=== PATIENT | female | born 1985 | race Caucasian/White ===

== ENCOUNTER 2017-03-12 09:29 | Emergency (ER) | payer OTHER ==
[2017-03-12 09:33] VITALS: BMI 40.3
--- NOTE | 2017-03-12 09:51 | PDOC ---
History of Present Illness - General History Source: Patient Exam Limitations: No Limitations - History of Present Illness Initial Comments: 03/12/17 10:00 The patient is a 32 year old female (37 weeks ), with no significant past medical history who presents to the emergency department with complaints of dizziness and headache. The patient states her headache begins behind her eyes and describes it as a heaviness. The patient denies any recent contractions and reports concern for high blood pressure. Patient denies any history of preeclampsia or complications in her previous pregnancies. She denies any nausea, vomiting, abdominal pain. She denies chest pain, fever, chills. She denies dysuria, frequency, urgency or hematuria. Allergies: NKA Past surgical history: None Social history: None <Richelle Szymanski - Last Filed: 03/12/17 10:01> <Jerrica Mattson - Last Filed: 03/12/17 16:49> - General Chief Complaint: Lightheaded Stated Complaint: BLOOD PRESSURE PROBLEM/WOOZY Time Seen by Provider: 03/12/17 09:41 Past History <Richelle Szymanski - Last Filed: 03/12/17 10:01> - Past Medical History Anemia: No Asthma: No Cancer: No Cardiac Disorders: No CVA: No COPD: No CHF: No Dementia: No Diabetes: No GI Disorders: No Disorders: No HTN: No Hypercholesterolemia: No Liver Disease: No Seizures: No Thyroid Disease: No - Reproductive History Is Patient Now?: Yes (#): 4 Para: 3 Cervical CA: No Dysfunctional Uterine Bleeding: No Ectopic : No Endometrial CA: No Polycystic Ovaries: No Therapeutic (s) & number: No Tubal Ligation: No Spontaneous : 0 - Immunization History Immunization Up to Date: Yes - Psycho/Social/Smoking Cessation Hx Anxiety: No Suicidal Ideation: No Smoking Status: No Smoking History: Never smoked Years of Tobacco Use: 13 Number of Cigarettes Smoked Daily: 8 'Breaking Loose' booklet given: 03/22/16 Hx Alcohol Use: No Drug/Substance Use Hx: No Substance Use Type: None Hx Substance Use Treatment: No <Jerrica Mattson - Last Filed: 03/12/17 16:49> - Past Medical History Allergies/Adverse Reactions: Allergies Allergy/AdvReac Type Severity Reaction Status Date / Time No Known Drug Allergies Allergy Verified 03/12/17 09:33 Home Medications: Ambulatory Orders NK [No Known Home Medication] 03/12/17 Review of Systems - Review of Systems Able to Perform ROS?: Yes Comments:: 03/12/17 10:00 GENERAL/CONSTITUTIONAL: No fever or chills. No weakness. HEAD, EYES, EARS, NOSE AND THROAT: No change in vision. No ear pain or discharge. No sore throat. CARDIOVASCULAR: No chest pain or shortness of breath. RESPIRATORY: No cough, wheezing, or hemoptysis. GASTROINTESTINAL: No nausea, vomiting, diarrhea or constipation. GENITOURINARY: No dysuria, frequency, or change in urination. MUSCULOSKELETAL: No joint or muscle swelling or pain. No neck or back pain. SKIN: No rash NEUROLOGIC: +headache.+dizziness. No vertigo, loss of consciousness, or change in strength/sensation. ENDOCRINE: No increased thirst. No abnormal weight change. HEMATOLOGIC/LYMPHATIC: No anemia, easy bleeding, or history of blood clots. ALLERGIC/IMMUNOLOGIC: No hives or skin allergy. <Richelle Szymanski - Last Filed: 03/12/17 10:01> *Physical Exam - Vital Signs Last Vital Signs Temp Pulse Resp BP Pulse Ox 98.1 F 88 20 137/77 99 03/12/17 09:30 03/12/17 09:30 03/12/17 09:30 03/12/17 09:30 03/12/17 09:30 <Richelle Szymanski - Last Filed: 03/12/17 10:01> - Vital Signs Last Vital Signs Temp Pulse Resp BP Pulse Ox 98.1 F 88 20 137/77 99 03/12/17 09:30 03/12/17 09:30 03/12/17 09:30 03/12/17 09:30 03/12/17 09:30 - Physical Exam Comments: GENERAL: Awake, alert, and fully oriented, in no acute distress HEAD: No signs of trauma EYES: PERRLA, EOMI, sclera anicteric, conjunctiva clear ENT: Auricles normal inspection, hearing grossly normal, nares patent, oropharynx clear without exudates. Dry mucosa NECK: Normal ROM, supple, no lymphadenopathy, JVD, or masses LUNGS: Breath sounds equal, clear to auscultation bilaterally. No wheezes, and no crackles HEART: Regular rate and rhythm, normal S1 and S2, no murmurs, rubs or gallops ABDOMEN: Soft, nontender, normoactive bowel sounds. No guarding, no rebound. Gravid uterus. EXTREMITIES: Normal range of motion, no edema. No clubbing or cyanosis. No cords, erythema, or tenderness NEUROLOGICAL: Cranial nerves II through XII grossly intact. Normal speech, normal gait SKIN: Warm, Dry, normal turgor, no rashes or lesions noted. <Jerrica Mattson - Last Filed: 03/12/17 16:49> ED Treatment Course - LABORATORY CBC & Chemistry Diagram: 03/12/17 10:00 03/12/17 10:00 <Jerrica Mattson - Last Filed: 03/12/17 16:49> Medical Decision Making - Medical Decision Making 03/12/17 11:58 Pt reassessed. She states she is feeling better s/p IV fluids. Stable for DC from ED up to L&D for monitoring. <Jerrica Mattson - Last Filed: 03/12/17 16:49> *DC/Admit/Observation/Transfer - Attestations Scribe Attestion: 03/12/17 10:00 Documentation prepared by Richelle Szymanski, acting as medical office technologist for Jerrica Mattson MD <Richelle Szymanski - Last Filed: 03/12/17 10:01> - Discharge Dispostion Admit: No <Jerrica Mattson - Last Filed: 03/12/17 16:49> Diagnosis at time of Disposition: Lightheaded - Discharge Dispostion Disposition: HOME Condition at time of disposition: Improved - Patient Instructions Additional Instructions: Discharge patient home. Stay well hydrated by drinking at least 10 glasses of water in addition to other fluids. Especially during the hot summer days. Keep all appointments as scheduled. Return to the labor and delivery unit if your water breaks, you have vaginal bleeding, the baby is not moving, or contractions unrelieved with rest and hydration.
[2017-03-12] MEDS ORDERED: SODIUM CHLORIDE 1,000 ML IV STA (09:52)
[2017-03-12 10:31] LABS: BASOPHIL 0.5 % (0-2.0); EOSINOPHIL 2.3 % (0-4.5); MCH 30.1 pg (25.7-33.7); MCHC 33.9 g/dl (32.0-36.0); MEAN CELL VOLUME 88.8 fl (80-96); MEAN PLT VOLUME 7.2 fl (7.5-11.1); NEUTROPHILS 76.4 % (42.8-82.8); PLATELET COUNT 260 K/MM3 (134-434); RDW 13.8 % (11.6-15.6); WHITE BLOOD COUNT 9.8 K/mm3 (4.0-10.0)
[2017-03-12 10:33] LABS: URINE APPEARANCE SLCLOUDY; URINE BILIRUBIN NEGATIVE (NEGATIVE); URINE COLOR AMBER; URINE GLUCOSE (UA) NEGATIVE (NEGATIVE); URINE KETONE NEGATIVE (NEGATIVE); URINE NITRITE NEGATIVE (NEGATIVE); URINE PROTEIN NEGATIVE (NEGATIVE); URINE UROBILINOGEN NEGATIVE E.U./dl (0.2-1.0)
[2017-03-12 10:59] LABS: BILIRUBIN,TOTAL 0.2 mg/dL (0.2-1.0)
[2017-03-12 11:00] LABS: URINE BLOOD 3+ (NEGATIVE); URINE LEUK ESTERASE TRACE (NEGATIVE)
[2017-03-12 11:11] LABS: ALBUMIN 2.3 g/dl (3.4-5.0); ALK PHOS 131 U/L (45-117); ANION GAP 12 (8-16); CALCIUM 8.8 mg/dL (8.5-10.1); CO2 20 mmol/L (21-32); COCKROFT - GAULT 240.9665; CREATININE 0.6 mg/dL (0.55-1.02); GLUCOSE,RANDOM 99 mg/dL (74-106); SGOT/AST 18 U/L (15-37); SGPT/ALT 20 U/L (12-78)
[2017-03-12 11:13] LABS: URINE MUCUS RARE; URINE RBC 32 /hpf (0-3); URINE WBC 6 /hpf (3-5)
--- NOTE | 2017-03-12 13:05 | EKG ---
Test Reason : Blood Pressure : / mmHG Vent. Rate : 072 BPM Atrial Rate : 072 BPM P-R Int : 146 ms QRS Dur : 084 ms QT Int : 376 ms P-R-T Axes : 011 033 039 degrees QTc Int : 411 ms NORMAL SINUS RHYTHM NORMAL ECG NO PREVIOUS ECGS AVAILABLE Confirmed by TRAY CASTANEDA MD ([id number]) on 03/12/2017 1:05:04 PM Referred By: Confirmed By:TRAY CASTANEDA MD
[2017-03-12 13:24] VITALS: BP 122/75; PULSE 65; TEMP 98
== END 2017-03-12 13:00 | disposition home or self-care (01) ==
LOC: JER 09:29
PROC: 3E0337Z Introduction of Electrolytic and Water Balance Substance into Peripheral Vein, Percutaneous Approach (ICD-10-PCS; principal; 2017-03-12)
DX: O26.93 Pregnancy related conditions, unspecified, third trimester (principal); Z3A.37 37 weeks gestation of pregnancy; R42 Dizziness and giddiness
CPT/HCPCS: 36415; 80053; 81003; 81015; 85025; 93005; 93010; 99283-25

== ENCOUNTER 2017-04-03 08:30 | Inpatient (IN) | payer OTHER ==
[2017-04-03 09:34] VITALS: BMI 33.3
[2017-04-03] MEDS ORDERED: DINOPROSTONE 10 MG VAGINAL SUPPOSITORY VG ONE (10:25)
[2017-04-03 10:28] LABS: BASOPHIL 0.3 % (0-2.0); EOSINOPHIL 2.4 % (0-4.5); MCH 30.2 pg (25.7-33.7); MCHC 34.2 g/dl (32.0-36.0); MEAN CELL VOLUME 88.2 fl (80-96); MEAN PLT VOLUME 7.4 fl (7.5-11.1); NEUTROPHILS 76.6 % (42.8-82.8); PLATELET COUNT 240 K/MM3 (134-434); RDW 14.2 % (11.6-15.6)
[2017-04-03 10:50] LABS: ANION GAP 8 (8-16); CALCIUM 8.6 mg/dL (8.5-10.1); CO2 22 mmol/L (21-32); CREATININE 0.6 mg/dL (0.55-1.02); GLUCOSE,RANDOM 91 mg/dL (74-106)
[2017-04-03] MEDS ORDERED: PROMETHAZINE HCL 25 MG/1 ML VIAL IVPUSH ONE (11:17)
[2017-04-03] MEDS ORDERED: BUTORPHANOL TARTRATE 1 MG/ML VIAL IVPB ONE (11:17)
[2017-04-03] MEDS ORDERED: SODIUM PHOSPHATE/NA BIPHOS 133 ML ENEMA PR ONE (11:19)
[2017-04-03 11:23] LABS: INR 0.96 (0.82-1.09); PROTHROMBIN TIME (PATIENT) 10.6 SEC (9.98-11.88)
[2017-04-03 11:26] LABS: ACTIVATED PTT 26.5 SECONDS (26.9-34.4)
[2017-04-03] MEDS ORDERED: DEXTROSE 5%-LACTATED RINGERS 1,000 ML IV SCH (11:30)
--- NOTE | 2017-04-03 12:10 | HP ---
Past Medical History - Primary Care Physician PCP:: Erica Mora - Admission Chief Complaint: 32 yrs , 40.5 weeks admitted for induction of labor. post term preg monitored by NST & BPP. 04/01/17 sono , BPP8/8, HUNTER 11 cm, EFW 3625 gm , NST cat-1 , History of Present Illness: PNC at 2, [facility] . Wt gain 50 lbs PN Work up : A Pos, Rpr nr, Hbsag neg, Rubella immune , Quantiferon neg, GBS Pos , , HIV neg, ,Gc.Ct neg , 1hrGtt 112, 09/17/16 Pap LSIL ,HR HPV pos, f/u in [facility] with Colposcopy h/o LEEP cone bx early US at 7.4 weeks RT ovarian cyst 5.6x5.3x5.2 cm noted . 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 Coploscopy was done at [facility]) ...: 9 ...Para: 3 (3 ,08/08/2003- 8'1", 12/05/2005-7'14' 04/29/2013 -7'3' t [facility] ) ...Term: 3 ...: 0 ...Spon : 0 ...Induced : 5 (2003, 2011, last 04/2016 ) ...Multiple Gestation: 0 ...LMP: 06/22/16 ... Weeks Gestation by Dates: 40.5 ...EDC by Dates: 03/29/17 ...EDC by Sono: 03/29/17 Heme/Onc: No: Anemia Infectious Disease: Yes: STD's (h/o chlamydia treateed in 2002. H/o HR HPV pos) . No: AIDS, HIV Psych: No: Addictions, Anxiety, Bipolar, Depression, Psychosis Endocrine: No: Diabetes Mellitus, Hyperparathyroidism, Hyperthyroidism, Hypothyroidism - Past Surgical History Hx Myomectomy: No Hx Transabdominal Cerclage: No Additional Surgical History: LEEP Cone Bx 02/2016 - Smoking History Smoking history: Never smoked Have you smoked in the past 12 months: No Aproximately how many cigarettes per day: 8 - Alcohol/Substance Use Hx Alcohol Use: No History of Substance Use: reports: None - Social History History of Recent Travel: No Home Medications - Allergies Allergies/Adverse Reactions: Allergies Allergy/AdvReac Type Severity Reaction Status Date / Time No Known Drug Allergies Allergy Verified 04/03/17 09:38 - Home Medications Home Medications: Ambulatory Orders Pnv95/Ferrous Fumarate/FA [ Vitamin Tablet] 1 each PO DAILY 04/01/17 Physical Exam - Maternity Vital Signs: Vital Signs Temperature 98.3 F 04/03/17 08:30 Pulse Rate 72 04/03/17 08:30 Respiratory Rate 18 04/03/17 08:30 Blood Pressure 121/64 04/03/17 08:30 O2 Sat by Pulse Oximetry (%) Constitutional: Yes: Well Nourished, No Distress Eyes: Yes: WNL HENT: Yes: WNL, Normocephalic Neck: Yes: WNL Cardiovascular: Yes: WNL, Regular Rate and Rhythm Lungs: Clear to auscultation Breast(s): Yes: WNL - Abdominal Exam/OB Fundal Height: 40 Number of Fetuses: Single Presentation: Vertex (exam at 10.25 am) Contractions: No Monitor Mode: External Heart Rate (range): 140 Heart Rate Location: Midline Category: I Accelerations: Uniform Decelerations: None - Vaginal Exam/OB Vaginal Bleediing: No Speculum Exam: No Dilatation (cm): 1-2 cm Effacement (%): unefface Amniotic Membrane Status: Intact Presentation: Vertex/Position Station: -3 - Physical Exam Musculoskeletal: Yes: WNL Extremities: Yes: WNL. No: Calf Tenderness Edema: Yes Edema: LLE: 1+, RLE: 1+ Integumentary: Yes: Tattoos Deep Tendon Reflex Grade: Normal +2 ...Motor Strength: WNL Psychiatric: Yes: WNL, Alert, Oriented - Labs Lab Results: CBC, BMP 04/03/17 10:00 04/03/17 10:00 Laboratory Tests 04/03/17 10:00 INR 0.96 PTT (Actin FS) 26.5 L Problem List - Problems (1) Post-term Code(s): O48.0 - POST-TERM Qualifiers: Post-term type: 40-42 weeks gestation Qualified Code(s): O48.0 - Post-term (2) Elective induction of labor planned Code(s): [id number] - (3) Positive GBS test Code(s): B95.1 - STREPTOCOCCUS, GROUP B, CAUSING DISEASES CLASSD ELSWHR (4) Grand multipara Code(s): Z64.1 - PROBLEMS RELATED TO MULTIPARITY Assessment/Plan 32 yrs [id number] 40.5 weeks, GBS pos ,s/o Leep cone Bx in past , abn pap ( LSIl0 admitted for induction of labor . Plan cervidil insertion GBS prophylaxis rx IV Ampicillin when UC are regular . trial vag delivery
[2017-04-03] MEDS ORDERED: AMPICILLIN - 2 GM in SODIUM CHLORIDE 100 ML IVPB ONE (15:04)
--- NOTE | 2017-04-03 15:08 | PN ---
Progress Note, Labor Vaginal Exam #1 Labor Exam Date: 04/03/17 Labor Exam Time: 15:00 Heart Rate (range): 140 Dilatation: 4 Effacement (%): 80 Amniotic Membrane Status: Intact Presentation: Vertex/Position Station: -3 (-3/) Remarks: uc q2-3 min fhr cat-1 pt requests for pain meds rx iv stadol 2mg + phenrgan 25 mg stat staet GBS prophylaxis Vaginal Exam #2 Labor Exam Date: 04/03/17 Labor Exam Time: 15:42 Heart Rate (range): 150 Dilatation: 8 Effacement (%): 100 Amniotic Membrane Status: Intact Presentation: Vertex/Position Station: 0 Remarks: cervidil removed FHR cat-1 UC q2-3 min 15.45 AROM clear , Fullyu dialted, pt pushing
[2017-04-03] MEDS ORDERED: BISACODYL 10 MG SUPP.RECT RC PRN (16:30)
[2017-04-03] MEDS ORDERED: BENZOCAINE 20% 57 GM BOTTLE TP PRN (16:30)
[2017-04-03] MEDS ORDERED: D5W-LR W/ 20 UNITS OXYTOCIN 1,000 ML IV SCH (16:30)
[2017-04-03] MEDS ORDERED: BENZOCAINE 28 GM HEMORRHOIDAL OINTMENT TP PRN (16:30)
[2017-04-03] MEDS ORDERED: METHYLERGONOVINE MALEATE 0.2 MG/1 ML AMP IM PRN (16:30)
[2017-04-03] MEDS ORDERED: oxyCODONE HCL 5 MG TABLET PO PRN (16:30)
[2017-04-03] MEDS ORDERED: WITCH HAZEL 50% (TUCKS) 40 PAD/JAR PAD TP PRN (16:30)
--- NOTE | 2017-04-03 16:42 | PN ---
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 Intrapartum course uneventful
[2017-04-03] MEDS: ACETAMINOPHEN 325 MG TABLET (FP) PO PRN (17:29)
[2017-04-03] MEDS: FERROUS SO4 325 MG TABLET (FP) PO SCH (17:29)
[2017-04-03] MEDS: IBUPROFEN 600 MG TABLET (FP) PO PRN (17:30)
[2017-04-03] MEDS ORDERED: AMPICILLIN - 1 GM in SODIUM CHLORIDE 100 ML IVPB SCH (19:04)
[2017-04-04] MEDS: IBUPROFEN 600 MG TABLET (FP) PO PRN ×4 (04:10→22:45)
[2017-04-04] MEDS: ACETAMINOPHEN 325 MG TABLET (FP) PO PRN ×4 (04:11→22:44)
[2017-04-04 07:04] LABS: BASOPHIL 0.3 % (0-2.0); EOSINOPHIL 2.2 % (0-4.5); MCH 30.2 pg (25.7-33.7); MCHC 33.9 g/dl (32.0-36.0); MEAN CELL VOLUME 88.9 fl (80-96); MEAN PLT VOLUME 7.4 fl (7.5-11.1); NEUTROPHILS 71.6 % (42.8-82.8); PLATELET COUNT 225 K/MM3 (134-434); RDW 14.4 % (11.6-15.6); WHITE BLOOD COUNT 11.9 K/mm3 (4.0-10.0)
[2017-04-04] MEDS: FERROUS SO4 325 MG TABLET (FP) PO SCH ×2 (08:31→17:09)
[2017-04-04] MEDS: PRENATAL VITAMINS W/ FOLIC ACID TABLET (FP) PO SCH (09:30)
--- NOTE | 2017-04-04 09:32 | PN ---
Post Progress Note - Subjective Subjective: no complains Post Day: 1 Type of Delivery: Vital Signs: Vital Signs Temperature 98.4 F 04/04/17 06:00 Pulse Rate 63 04/04/17 06:00 Respiratory Rate 20 04/04/17 06:00 Blood Pressure 126/93 04/04/17 06:00 O2 Sat by Pulse Oximetry (%) 99 04/03/17 17:00 Breast Exam: Yes: Soft, Other (BF ). No: Engorged Uterus: Yes: Fundus Firm, Fundus below umbilicus, Non-tender Abdomen/GI: Yes: Abdomen soft, Passing flatus, Tolerating PO (diet ). No: Abdominal Distention, Tender Lochia: Yes: Rubra Lochia, amount: Moderate Extremities: Yes: Calves non-tender Perineum: Yes: Intact Activity: Ambulating - Labs Labs: CBC WBC 11.9 K/mm3 (4.0-10.0) H 04/04/17 05:40 RBC 3.62 M/mm3 (3.60-5.2) 04/04/17 05:40 Hgb 10.9 GM/dL (10.7-15.3) 04/04/17 05:40 Hct 32.1 % (32.4-45.2) L 04/04/17 05:40 MCV 88.9 fl (80-96) 04/04/17 05:40 MCHC 33.9 g/dl (32.0-36.0) 04/04/17 05:40 RDW 14.4 % (11.6-15.6) 04/04/17 05:40 Plt Count 225 K/MM3 (134-434) 04/04/17 05:40 MPV 7.4 fl (7.5-11.1) L 04/04/17 05:40 Neutrophils % 71.6 % (42.8-82.8) 04/04/17 05:40 Lymphocytes % 17.9 % (8-40) D 04/04/17 05:40 Monocytes % 8.0 % (3.8-10.2) 04/04/17 05:40 Eosinophils % 2.2 % (0-4.5) 04/04/17 05:40 Basophils % 0.3 % (0-2.0) 04/04/17 05:40 Problem List - Problems (1) Post-term Code(s): O48.0 - POST-TERM Qualifiers: Post-term type: 40-42 weeks gestation Qualified Code(s): O48.0 - Post-term (2) Elective induction of labor planned Code(s): [id number] - (3) Positive GBS test Code(s): B95.1 - STREPTOCOCCUS, GROUP B, CAUSING DISEASES CLASSD ELSWHR (4) Grand multipara Code(s): Z64.1 - PROBLEMS RELATED TO MULTIPARITY Assessment/Plan stable plan ct pp care
[2017-04-04] MEDS ORDERED: DIPHTH,PERTUSS(ACELL),TET 0.5 ML DISP.SYRIN IM ONE ×2 (10:00→19:30)
[2017-04-04] MEDS ORDERED: SENNOSIDES/DOCUSATE COMBO (SENNA PLUS) TABLET (UD) PO PRN (22:00)
--- NOTE | 2017-04-05 07:48 | DS ---
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 No: Calf Tenderness Edema: Yes Edema: LLE: 1+, RLE: 1+ Neurological: Yes: WNL ...Motor Strength: WNL Psychiatric: Yes: WNL, Alert, Oriented Labs: CBC, BMP 04/04/17 05:40 04/03/17 10:00 Delivery - Delivery Vaginal Delivery: No Problems, Spontaneous Type of Anesthesia: None Episiotomy/Laceration: None EBL (cc): 200 Delivery, Single - Stages of Labor Date 1st Stage Initiatied: 04/03/17 Time 1st Stage Initiated: 13:30 Date 2nd Stage Initiated: 04/03/17 Time 2nd Stage Initiated: 15:45 Date of Delivery: 04/03/17 Time of Delivery: 15:48 Time Placenta Delivered: 15:53 Placenta: Yes: Spontaneous, Uterine Exploration - 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 Intrapartum course uneventful pp course uneventful discharge today Discharge Summary Current Active Problems Elective induction of labor planned (Acute) Grand multipara (Acute) Normal spontaneous vaginal delivery (Acute) Positive GBS test (Acute) Post-term (Acute) Condition: Stable - Instructions Diet, Activity, Other Instructions: Post Instructions DIET: Continue good diet high in protein, calcium, and iron rich foods. Drink at least eight (8) glasses of water daily in addition to other fluids. ___ Regular diet MEDICATIONS: Continue vitamins and iron as previously directed. Motrin and Tylenol may be taken for minor discomfort. ACTIVITY: Mild to moderate exercise may be started in two (2) weeks. Take frequent rest periods. Resume normal activity after six (6) week check up. WOUND CARE OF OPERATIVE SITE: Continue use of perineal bottle until vaginal discharge stops. Keep area clean. Shower daily. Keep abdominal wound dry. Report any drainage or redness to physician. Tub baths, tampons and douches are not permitted for [address] Breast feeding & or Bottle feeding BREAST CARE: (For those that are not breast feeding): If engorgement occurs: Wear tight fitting bra. Take Tylenol or Motrin for pain. Apply cold packs (ice in bags to each breast ) FAMILY PLANNING: There are many control alternatives to pursue and they should be discussed at your first office visit. You may resume sexual activity after your six (6) week check up. (Remember, breast feeding is not a contraceptive) NEXT PHYSICIAN APPOINTMENT: Be certain to call for a six (6) week appointment, unless otherwise directed. Call Clinic or got to Emergency Dept if you have any of the following: Heavy vaginal bleeding Painful urination Leg pain Unusual odor noted to vaginal bleeding High fever Red streaking noted on breast Referrals: Erica Mora MD [Staff Physician] - Disposition: HOME - Home Medications Comprehensive Discharge Medication List: Ambulatory Orders Pnv95/Ferrous Fumarate/FA [ Vitamin Tablet] 1 each PO DAILY 04/01/17 Acetaminophen [Tylenol .Regular Strength -] 650 mg PO Q3H PRN #0 tablet Ferrous Sulfate [Feosol] 325 mg PO BIDWM tab 04/04/17 Ibuprofen [Motrin -] 200 mg PO Q4H PRN #0 tablet 04/04/17 Vitamins (Sjr) - 1 tab PO DAILY tablet 04/04/17
[2017-04-05] MEDS: FERROUS SO4 325 MG TABLET (FP) PO SCH (07:49)
[2017-04-05] MEDS: ACETAMINOPHEN 325 MG TABLET (FP) PO PRN (07:54)
[2017-04-05] MEDS: IBUPROFEN 600 MG TABLET (FP) PO PRN (07:54)
[2017-04-05] MEDS: PRENATAL VITAMINS W/ FOLIC ACID TABLET (FP) PO SCH (09:10)
[2017-04-05 09:57] VITALS: BP 119/67; PULSE 61; TEMP 97.7
== END 2017-04-05 13:35 | disposition home or self-care (01) | DRG 560 ==
LOC: JLDR 08:30 → J3W 13:00
PROVIDERS: ADMIT Obstetrics & Gynecology; ATTEND Obstetrics & Gynecology
PROC: 10E0XZZ Delivery of Products of Conception, External Approach (ICD-10-PCS; principal; 2017-04-03)
PROC: 3E0P7GC Introduction of Other Therapeutic Substance into Female Reproductive, Via Natural or Artificial Opening (ICD-10-PCS; 2017-04-03)
DX: O48.0 Post-term pregnancy (principal); Z3A.40 40 weeks gestation of pregnancy; Z22.330 Carrier of Group B streptococcus; Z37.0 Single live birth
CPT/HCPCS: 36415; 59409; 80048; 85025; 85610; 85730; 86593; 86850; 86900; 86901; 90715

== ENCOUNTER 2019-01-15 11:02 | Emergency (ER) | payer OTHER ==
[2019-01-15 11:13] VITALS: BP 146/89; PULSE 76; TEMP 98.7; BMI 34.9
--- NOTE | 2019-01-15 11:38 | PDOC ---
History of Present Illness - General Chief Complaint: Injury Stated Complaint: RT FINGER INJURY Time Seen by Provider: 01/15/19 11:14 History Source: Patient Exam Limitations: Clinical Condition - History of Present Illness Initial Comments: 01/15/19 11:33 Patient with no significant past medical history present with complaint of pain to cuticle and distal portion of right index finger status post accidentally slamming car door on the finger yesterday. Patient reported having laceration to cuticle of right index finger which she put bacitracin and bandage overlying stopped bleeding. Denies any other symptoms Timing/Duration: 24 hours Past History - Past Medical History Allergies/Adverse Reactions: Allergies Allergy/AdvReac Type Severity Reaction Status Date / Time No Known Drug Allergies Allergy Verified 01/15/19 11:10 Home Medications: Ambulatory Orders Ibuprofen 800 mg PO Q8H PRN #20 tablet 01/15/19 Anemia: No Asthma: No Cancer: No Cardiac Disorders: No CVA: No COPD: No CHF: No Dementia: No Diabetes: No GI Disorders: No Disorders: No HTN: No Hypercholesterolemia: No Liver Disease: No Seizures: No Thyroid Disease: No - Reproductive History (#): 4 Para: 3 Cervical CA: No Dysfunctional Uterine Bleeding: No Ectopic : No Endometrial CA: No Polycystic Ovaries: No Therapeutic (s) & number: No Tubal Ligation: No Spontaneous : 0 - Immunization History Immunization Up to Date: Yes - Suicide/Smoking/Psychosocial Hx Smoking Status: No Smoking History: Never smoked Years of Tobacco Use: 13 Have you smoked in the past 12 months: No Number of Cigarettes Smoked Daily: 8 Information on smoking cessation initiated: No 'Breaking Loose' booklet given: 03/22/16 Hx Alcohol Use: No Drug/Substance Use Hx: No Substance Use Type: None Hx Substance Use Treatment: No Review of Systems - Review of Systems Able to Perform ROS?: Yes Is the patient limited Polish proficient: No Constitutional: No: Weakness HEENTM: No: Symptoms Reported Respiratory: No: Symptoms reported Cardiac (ROS): No: Symptoms Reported : No: Symptoms Reported Musculoskeletal: Yes: See HPI, Joint Swelling (dip of right index finger), Muscle Pain (distal right index finger). No: Muscle Weakness Neurological: No: Numbness, Paresthesia, Tingling All Other Systems: Reviewed and Negative *Physical Exam - Vital Signs Last Vital Signs Temp Pulse Resp BP Pulse Ox 98.7 F 76 17 146/89 99 01/15/19 11:10 01/15/19 11:10 01/15/19 11:10 01/15/19 11:10 01/15/19 11:10 - Physical Exam Comments: 01/15/19 11:36 GENERAL: Well developed, well nourished. Awake and alert. No acute distress. CARDIOVASCULAR: Regular rate and rhythm. No murmurs, rubs, or gallops. PULMONARY: No evidence of respiratory distress. MUSCULOSKELETAL : Moderate tenderness over cuticle of right index finger with small 1 cm superficial laceration over distal dorsal phalanx of right index finger. No active bleeding. Mild swelling to distal phalange of right index finger around nailbed of fingernail No bony deformities SKIN: Warm and dry. Normal capillary refill.mild swelling to distal phalange of right index finger NEUROLOGICAL: Alert, awake, appropriate. No motor deficits in the lower extremities. Gait is normal without ataxia. PSYCHIATRIC: Cooperative. Good eye contact. Appropriate mood and affect. General Appearance: Yes: Nourished, Appropriately Dressed. No: Apparent Distress Procedures - Splinting Splint Location: Right: Finger (distal phalange of right index finger) Pre-Proc Neuro Vasc Exam: normal Pre-Made Type: metal Hand-Made Type: orthoglass Splint Type: Yes: Finger Post-Proc Neuro Vasc Exam: normal Gera Bandage: no Sling: No Complications: No Post splint xray: No Good repositioning: Yes ED Treatment Course - RADIOLOGY Radiology Studies Ordered: Category Date Time Status FINGER(S) RIGHT [RAD] Stat Radiology 01/15/19 11:17 Ordered Medical Decision Making - Medical Decision Making 01/15/19 11:38 Patient with no significant past medical history present with complaint of pain and swelling to cuticle and nail bed of right index finger status post accidentally slamming door on finger yesterday. Exam significant for moderate tenderness to distal phalange and cuticle of right index finger with small 1cm superficial laceration to dorsal aspect of cuticle of right index finger. Symptoms likely finger contusion versus finger fracture. X-ray of right index finger ordered to rule out fracture 01/15/19 12:59 x- ray of right index finger shows non-displaced fracture of distal phalange of right index finger. Finger placed in finger splint. motrin 800mg PO given for pain. referred given to orthopedics for follow-up care *DC/Admit/Observation/Transfer Diagnosis at time of Disposition: Closed fracture of phalanx of index finger Qualifiers: Encounter type: initial encounter Phalanx: distal Fracture alignment: nondisplaced Laterality: right Qualified Code(s): S62.660A - Nondisplaced fracture of distal phalanx of right index finger, initial encounter for closed fracture - Discharge Dispostion Disposition: HOME Condition at time of disposition: Stable Decision to Admit order: No - Prescriptions Prescriptions: Ibuprofen 800 mg PO Q8H PRN #20 tablet PRN Reason: Pain - Referrals Referrals: Tom Leblanc MD [Staff Physician] - - Patient Instructions Printed Discharge Instructions: DI for Finger Fracture Additional Instructions: Your x-rays shows fracture of distal part of finger. Keep finger splint on for at least a week and follow-up with referred orthopedics for follow-up care - Post Discharge Activity
[2019-01-15] MEDS ORDERED: IBUPROFEN 400 MG TABLET (FP) PO ONE ×2 (12:47→12:52)
== END 2019-01-15 13:02 | disposition home or self-care (01) ==
LOC: JERFT 11:02
PROC: 2W3JX1Z Immobilization of Right Finger using Splint (ICD-10-PCS; principal; 2019-01-15)
DX: S62.660A Nondisplaced fracture of distal phalanx of right index finger, initial encounter for closed fracture (principal); V48.3XXA Unspecified car occupant injured in noncollision transport accident in nontraffic accident, initial encounter; Y92.488 Other paved roadways as the place of occurrence of the external cause; Y93.89 Activity, other specified; Y99.8 Other external cause status
CPT/HCPCS: 29130; 73140-TC-RT-FY; 99281-25

== ENCOUNTER 2019-07-23 05:01 | Day surgery (SDC) | payer OTHER ==
[2019-07-22 10:01] VITALS: BMI 35.5
--- NOTE | 2019-07-23 13:58 | HP ---
History & Physical Update - Physical Physical: No Change - Assessment Assessment: No Change - Plan Plan: No Change
[2019-07-23] MEDS ORDERED: MIDAZOLAM HCL 2 MG/2 ML SINGLE DOSE VIAL ONE (14:30)
[2019-07-23] MEDS ORDERED: PROPOFOL 20 ML ONE (14:30)
[2019-07-23] MEDS ORDERED: SILVER NITRATE 75% APPLIC STCK 1 PKT EACH TP ONE (15:35)
[2019-07-23] MEDS ORDERED: oxyCODONE HCL 5 MG TABLET PO PRN (15:52)
[2019-07-23] MEDS ORDERED: PROMETHAZINE HCL 25 MG/1 ML VIAL IVPB PRN (15:52)
[2019-07-23] MEDS ORDERED: ONDANSETRON 4 MG/2 ML VIAL IVPUSH PRN (15:52)
--- NOTE | 2019-07-23 16:06 | OP ---
Operative Note - Note: Operative Date: 07/23/19 (#[id number]) Pre-Operative Diagnosis: JAZMIN III, IUD removal and replacement Operation: MIRENA IUD removal, LEEP, Top Hat biopsy, ECC, Paragard IUD Placement Findings: see dictation Implants: Paragard IUD Post-Operative Diagnosis: Same as Pre-op Surgeon: Kennedy Keen Anesthesia: MAC Specimens Removed: LEEP, Top Hat biopsy, ECC, MIrena IUD Estimated Blood Loss (mls): 100 Fluid Volume Replaced (mls): 100 Operative Report Dictated: Yes
[2019-07-23 18:03] VITALS: TEMP 98
[2019-07-23 18:22] VITALS: BP 130/72; PULSE 71
--- NOTE | 2019-07-24 13:20 | OP ---
DATE OF OPERATION: 07/23/2019 PREOPERATIVE DIAGNOSIS: A 34-year-old female with cervical intraepithelial neoplasia 3 on colposcopy biopsy, prior history of loop electrosurgical excision procedure, Mirena intrauterine device in place, desiring replacement with ParaGard intrauterine device. POSTOPERATIVE DIAGNOSIS: A 34-year-old female with cervical intraepithelial neoplasia 3 on colposcopy biopsy, prior history of loop electrosurgical excision procedure, Mirena intrauterine device in place, desiring replacement with ParaGard intrauterine device. PROCEDURE PERFORMED: Examination under anesthesia, Mirena intrauterine device removal, loop electrosurgical excision procedure, endocervical curettage, ParaGard intrauterine device placement. SURGEON: Robyn Garcias MD ANESTHESIA: MAC. INTRAVENOUS FLUIDS: One liter. ESTIMATED BLOOD LOSS: About 100 mL. COMPLICATIONS: None. FINDINGS: A morbidly obese patient. Normal external genitalia. Vaginal mucosa consistent with normal anatomy. The cervix was patulous and large. Colposcopic evaluation revealed transitional zone. Edges of abnormalities noted. No active bleeding at conclusion of the procedure. DESCRIPTION OF PROCEDURE: Patient was taken to the operating room, where anesthesia was found to be adequate. She was then prepped and draped in a normal sterile fashion. Insulated speculum was placed and excellent visualization of the cervix achieved. The IUD strings were noted and the IUD removed intact and sent to Pathology for gross recognition. Acetic acid was applied to the cervix. The colposcope was utilized to evaluate preoperatively. Edges of abnormalities and of cervical irregularity noted and LEEP procedure ensued. The 2 x 1-cm loop was utilized from left to right of the patient, starting past most lateral acetowhite changes. Specimen labeled "main LEEP biopsy" with suture at 12 o'clock sent to Pathology. A superior pass took place to cover acetowhite changes superiorly. The specimen was sent to Pathology with a suture at 12 o'clock. Attention was then redirected to the inferior aspect of the cervix which underwent an additional LEEP inferior pass with the same loop. Its 6 o'clock edge was labeled with a suture. The specimen was sent to Pathology. A top hat biopsy then took place. A superior specimen was acquired and it was labeled at 12 o'clock with a suture. Then an inferior top hat component took place with the same loop of 1 x 1 cm at its 6 o'clock location. Oozing bleeding was controlled with the Bovie cautery. ECC took place with 2 passages, and a copious amount of tissue noted on the Telfa. Specimen sent to Pathology. Additional bleeding was neutralized with the ball cautery. Then the sound was used to measure the intrauterine cavity to a depth of 8 cm. The ParaGard IUD was assembled and placed without difficulty to this depth. Deployed appropriately, and the strings cut approximately 3 cm from the os. Mild oozing at the periphery of the LEEP biopsy neutralized with silver nitrate. No active bleeding at the conclusion of the procedure. Instrument count and sponge count were correct x2, as reported by staff. The patient in stable condition to the recovery room. The patient will be given the ParaGard IUD card for her records. ROBYN GARCIAS MD [id number]
--- NOTE | 2019-07-27 18:38 | PATH ---
Surgical Pathology Report Patient Name: MOOSE [facility]AE[facility]. Rec. #: [id number] /Age/Gender: 1985 (Age: 34) / F Account: [id number] Location: [facility] SURGICAL Taken: 07/23/2019 Received: 07/26/2019 Reported: 07/27/2019 Physicians: Kennedy Keen MD Specimen(s) Received A: IUD B: LEEP BX #1 MAIN, SUTURE@ 6 O'CLOCK C: LEEP BX #2 SUPERIOR EDGE, SUTURE@12 O'CLOCK D: LEEP BX #3 INFERIOR PASS, SUTURE @ 6 O'CLOCK E: TOP HAT BX. SUPERIOR EDGE @ 12 O'CLOCK F: TOP HAT BX. INFERIOR EDGE @ 6 O'CLOCK SUTURE G: ENDOCERVICAL CURETTINGS Clinical History JAZMIN 3, dysplasia of cervix uteri, unspecified Final Diagnosis A. OLD IUD, REMOVAL: CONSISTENT WITH INTRAUTERINE DEVICE. GROSS EXAMINATION ONLY. B. LEEP BIOPSY #1 MAIN, SUTURE AT 6:00: CERVICAL TISSUE SHOWING JAZMIN 3 (CERVICAL INTRAEPITHELIAL NEOPLASIA GRADE 3) WITH GLANDULAR INVOLVEMENT, PRESENT IN THREE OF FOUR QUADRANTS (3 O'CLOCK~12 O'CLOCK). MARGINS ARE POSITIVE FOR JAZMIN 3. C. LEEP BIOPSY #2, SUPERIOR EDGE, SUTURE AT 12:00: CERVICAL TISSUE WITH JAZMIN 3. JAZMIN 3 PRESENT AT ENDOCERVICAL MARGIN. D. LEEP BIOPSY #3 INFERIOR PASS, SUTURE AT 6:00: CERVICAL TISSUE WITH JAZMIN 3. CAUTERIZED RESECTION MARGIN APPEARS NEGATIVE FOR HIGH GRADE DYSPLASIA. E. TOP HAT BIOPSY SUPERIOR EDGE AT 12:00[X]: ENDOCERVICAL TISSUE, NEGATIVE FOR DYSPLASIA. F. TOP HAT BIOPSY INFERIOR EDGE AT 6:00[X]: ENDOCERVICAL TISSUE, NEGATIVE FOR DYSPLASIA. G. ENDOCERVICAL CURETTINGS: ENDOCERVICAL TISSUE WITH NO SIGNIFICANT PATHOLOGIC CHANGE. NEGATIVE FOR DYSPLASIA Electronically Signed Devi Zaragoza M.D. Gross Description A. Received fresh labeled "old IUD," is a 3 cm in length white, plastic T-shaped device, consistent with an IUD. No soft tissue is present. No sections are submitted, gross only. B. Received in formalin labeled "LEEP biopsy #1 main," is a 2 cm in diameter omalley, annular portion of soft tissue, consistent with a cervical LEEP cone biopsy. There is a suture marking the 6:00 aspect of the specimen, per the surgeon. The specimen is partially surfaced by a omalley, glistening mucosa. The specimen is inked green, serially sectioned and entirely submitted in 4 cassettes as follows: 1-12:00 to 3:00; 2-3:00 to 6:00; 3-6:00 to 9:00; 4-9:00 to 12:00. C. Received in formalin labeled "LEEP biopsy #2 superior edge," is a 2.0 x 1.0 x 0.7 cm omalley, irregular portion of soft tissue, consistent with a cervix biopsy. There is a suture marking the 12:00 aspect, per the surgeon. The specimen is inked green, serially sectioned and entirely submitted in 2 cassettes as follows: 1-9:00 to 12:00; 2-12:00 to 3:00. D. Received in formalin labeled "LEEP biopsy #3 inferior pass," is a 2.5 x 1.0 x 0.4 cm omalley portion of soft tissue, consistent with a cervix biopsy. There is a suture marking the 6:00 aspect of the specimen, per the surgeon. The specimen is inked green, serially sectioned and entirely submitted in 2 cassettes as follows: 1-3:00 to 6:00; 2-6:00 to 9:00. E. Received in formalin labeled "top hat biopsy superior edge," is a 1.8 x 0.9 x 0.7 cm omalley portion of firm tissue, consistent with a cervix biopsy. There is a suture marking the 12:00 aspect, per the surgeon. The specimen is inked green and serially sectioned. The specimen is entirely submitted in 2 cassettes as follows: 1-9:00 to 12:00; 2-12:00 to 3:00. F. Received in formalin labeled "top hat biopsy inferior edge," is a 1.8 x 0.8 x 0.7 cm omalley portion of firm tissue, consistent with a cervix biopsy. There is a suture marking the 6:00 aspect, per the surgeon. The specimen is inked green and serially sectioned. The specimen is entirely submitted in 2 cassettes as follows: 1-3:00 to 6:00; 2-6:00 to 9:00. G. Received in formalin labeled "endocervical curettings," is a 0.6 x 0.4 x 0.1 cm aggregate of omalley-brown soft tissue fragments. The formalin is filtered and the specimen is entirely submitted in one cassette. 07/26/201907/26/2019
== END 2019-07-23 18:20 | disposition home or self-care (01) ==
LOC: JASU-SURG 05:01
PROVIDERS: ATTEND Student in an Organized Health Care Education/Training Program
PROC: 0UBC7ZX Excision of Cervix, Via Natural or Artificial Opening, Diagnostic (ICD-10-PCS; principal; 2019-07-23 12:30)
PROC: 0U2DXHZ Change Contraceptive Device in Uterus and Cervix, External Approach (ICD-10-PCS; 2019-07-23 12:30)
DX: D06.9 Carcinoma in situ of cervix, unspecified (principal); Z30.433 Encounter for removal and reinsertion of intrauterine contraceptive device; E66.01 Morbid (severe) obesity due to excess calories
CPT/HCPCS: 88300-TC; 88305-TC; 88307-TC; 94760

== ENCOUNTER 2019-09-30 12:26 | Emergency (ER) | payer OTHER ==
[2019-09-30 12:40] VITALS: BMI 37.1
--- NOTE | 2019-09-30 13:53 | PDOC ---
History of Present Illness - General Chief Complaint: Blood Pressure Problem Stated Complaint: HIGH BLOOD PRESSURE Time Seen by Provider: 09/30/19 12:50 History Source: Patient Exam Limitations: No Limitations - History of Present Illness Initial Comments: 09/30/19 13:49 Pt is a 34 y/o female with no active medical history who presents to the ED with complaint of high blood pressure. She states she was seen a few days ago at [facility] for pre-op work-up for a LEEP procedure that she is having next week. The patient states that her BP was 140s/90s during that visit after being checked twice. She states she has had high BP in the past but states it was 130s systolic. She states she also has a history of anxiety and she is very nervous that something is wrong. She states she is very anxious and feels off. She denies any numbness or tingling. She has not been taking anything for her BP and this is the first she is being evaluated for it. Is this a multiple visit Asthma Patient?: No Past History - Past Medical History Allergies/Adverse Reactions: Allergies Allergy/AdvReac Type Severity Reaction Status Date / Time No Known Drug Allergies Allergy Verified 09/30/19 12:40 Home Medications: Ambulatory Orders Ibuprofen 800 mg PO Q8H PRN #20 tablet 01/15/19 Anemia: Yes ("DURING ") Asthma: No Cancer: No Cardiac Disorders: No CVA: No COPD: No CHF: No Dementia: No Diabetes: No GI Disorders: No Disorders: No HTN: No Hypercholesterolemia: No Liver Disease: No Seizures: No Thyroid Disease: No - Surgical History Abdominal Surgery: No Appendectomy: No Cardiac Surgery: No Cholecystectomy: No Lung Surgery: No Neurologic Surgery: No Orthopedic Surgery: No - Reproductive History (#): 4 Para: 3 Cervical CA: No Dysfunctional Uterine Bleeding: No Ectopic : No Endometrial CA: No Polycystic Ovaries: No Therapeutic (s) & number: No Tubal Ligation: No Spontaneous : 0 - Immunization History Immunization Up to Date: Yes - Psycho Social/Smoking Cessation Hx Smoking Status: No Smoking History: Current every day smoker Years of Tobacco Use: 13 Have you smoked in the past 12 months: Yes Number of Cigarettes Smoked Daily: 10 If you are a former smoker, when did you quit?: 07/08/19 Information on smoking cessation initiated: No 'Breaking Loose' booklet given: 07/22/19 Hx Alcohol Use: Yes (OCCASIONAL) Drug/Substance Use Hx: No Substance Use Type: Alcohol Hx Substance Use Treatment: No Review of Systems - Review of Systems Able to Perform ROS?: Yes Constitutional: No: Chills, Fever, Malaise, Weakness HEENTM: No: Blurred Vision, Double Vision, Throat Swelling, Difficulty Swallowing, Mouth Swelling Respiratory: No: Cough, Shortness of Breath, Wheezing Cardiac (ROS): Yes: Chest Pain. No: Edema, Irregular Heart Rate, Lightheadedness, Palpitations, Syncope, Chest Tightness ABD/GI: No: Diarrhea, Nausea, Vomiting, Abdominal cramping Musculoskeletal: No: Muscle Weakness Integumentary: No: Rash Neurological: No: Headache, Numbness, Tingling *Physical Exam - Vital Signs Last Vital Signs Temp Pulse Resp BP Pulse Ox 98 F 94 H 18 177/93 H 99 09/30/19 12:37 09/30/19 12:37 09/30/19 12:37 09/30/19 12:37 09/30/19 12:37 - Physical Exam General Appearance: Yes: Nourished, Appropriately Dressed, Other (very anxious appearing) HEENT: positive: EOMI, PORSCHE, Hearing Grossly Normal, Other (no papilledema appreciated) Neck: positive: Supple. negative: Decreased range of motion Respiratory/Chest: positive: Lungs Clear, Normal Breath Sounds. negative: Chest Tender Cardiovascular: positive: Regular Rhythm, Regular Rate, S1, S2. negative: Edema , Murmur Gastrointestinal/Abdominal: positive: Normal Bowel Sounds, Soft. negative: Tender Musculoskeletal: negative: Decreased Range of Motion Extremity: positive: Normal Capillary Refill, Normal Inspection Integumentary: positive: Normal Color, Dry, Warm Neurologic: positive: table keeper II-XII NML intact, Fully Oriented, Alert, Responsive, Other (anxious) Heart Score/ECG Review - ECG Intrepretation Comment:: 09/30/19 14:08 An EKG from [facility] was reviewed from 09/28/19 and shows NSR @72 bpm, no ST/T wave abnormalities appreciated. ED Treatment Course - LABORATORY CBC & Chemistry Diagram: 09/30/19 14:20 09/30/19 14:20 - RADIOLOGY Radiology Studies Ordered: Category Date Time Status CHEST PA & LAT [RAD] Stat Radiology 09/30/19 13:31 Ordered Medical Decision Making - Medical Decision Making 09/30/19 15:41 Pt CXR shows now acute infiltrates. She is feeling more calm. Her labs show no evidence of end organ damage. The patient has an appointment with her primary doctor on 10/07/19 for evaluation at the [facility]. She has been made aware that her BP is now 147/93 which is still elevated but has come down from her initial BP upon arrival. She has been made aware that starting her on BP meds should be left to her primary doctor to ensure proper follow up. The patient understands and agrees with this treatment and plan. She has been given strict return instructions to the ED. Discharge - Discharge Information Problems reviewed: Yes Clinical Impression/Diagnosis: Hypertension Qualifiers: Hypertension type: essential hypertension Qualified Code(s): I10 - Essential ( primary) hypertension Condition: Stable Disposition: HOME - Follow up/Referral - Patient Discharge Instructions Patient Printed Discharge Instructions: DI for High Blood Pressure Additional Instructions: Be sure to follow up with your primary doctor at the [facility] on 10/07/19 for repeat evaluation of your blood pressure. You can return to the ED for any worsening symptoms or concerns. - Post Discharge Activity Work/Back to School Note: Back to Work
[2019-09-30 14:52] LABS: BASO % 1.1 % (0-2.0); EOS % 2.5 % (0-4.5); HEMATOCRIT 38.8 % (32.4-45.2); HEMOGLOBIN 12.9 GM/dL (10.7-15.3); LYMPH % 14.7 % (8-40); MCH 29.1 pg (25.7-33.7); MCHC 33.1 g/dl (32.0-36.0); MONO % 5.4 % (3.8-10.2); NEUT % 76.3 % (42.8-82.8); PLATELET COUNT 434 K/MM3 (134-434); RBC 4.41 M/mm3 (3.60-5.2); RDW 13.7 % (11.6-15.6); WHITE BLOOD COUNT 9.8 K/mm3 (4.0-10.0)
[2019-09-30 15:17] LABS: ALBUMIN 3.6 g/dl (3.4-5.0); BILIRUBIN,TOTAL 0.3 mg/dL (0.2-1); CALCIUM 8.9 mg/dL (8.5-10.1); CREATININE 0.8 mg/dL (0.55-1.3); POTASSIUM 4.1 mmol/L (3.5-5.1); TOT PROT 7.9 g/dl (6.4-8.2)
[2019-09-30 16:07] VITALS: BP 141/90; PULSE 83; TEMP 98.4
--- NOTE | 2019-10-01 13:23 | EKG ---
Test Reason : Blood Pressure : / mmHG Vent. Rate : 073 BPM Atrial Rate : 073 BPM P-R Int : 156 ms QRS Dur : 090 ms QT Int : 406 ms P-R-T Axes : 008 037 045 degrees QTc Int : 447 ms NORMAL SINUS RHYTHM NORMAL ECG WHEN COMPARED WITH ECG OF 12-MAR-2017 10:27, NO SIGNIFICANT CHANGE WAS FOUND Confirmed by CHRIS MATHUR MD ([id number]) on 10/01/2019 1:23:11 PM Referred By: Confirmed By:CHRIS MATHUR MD
== END 2019-09-30 16:00 | disposition home or self-care (01) ==
LOC: JER 12:26
DX: I10 Essential (primary) hypertension (principal); Z86.2 Personal history of diseases of the blood and blood-forming organs and certain disorders involving the immune mechanism; F17.210 Nicotine dependence, cigarettes, uncomplicated
CPT/HCPCS: 36415; 71046-TC-FY; 80053; 82550; 82553; 83735; 84484; 85025; 93005; 93010; 99284-25

== ENCOUNTER 2020-09-29 15:05 | Emergency (ER) | payer OTHER ==
[2020-09-29 15:26] VITALS: BMI 36.6
[2020-09-29 17:14] LABS: BASO % 0.5 % (0-2.0); EOS % 2.8 % (0-4.5); HEMATOCRIT 35.8 % (32.4-45.2); HEMOGLOBIN 12.1 GM/dL (10.7-15.3); LYMPH % 25.6 % (8-40); MCH 30.5 pg (25.7-33.7); MCHC 33.7 g/dl (32.0-36.0); MEAN CELL VOLUME 90.7 fl (80-96); MEAN PLT VOLUME 6.9 fl (7.5-11.1); MONO % 6.6 % (3.8-10.2); NEUT % 64.5 % (42.8-82.8); PLATELET COUNT 394 K/MM3 (134-434); RBC 3.95 M/mm3 (3.60-5.2); RDW 14.3 % (11.6-15.6); WHITE BLOOD COUNT 10.7 K/mm3 (4.0-10.0)
[2020-09-29 17:37] LABS: POTASSIUM 4.4 mmol/L (3.5-5.1)
[2020-09-29 17:38] LABS: CALCIUM 8.7 mg/dL (8.5-10.1)
[2020-09-29 17:39] LABS: ALBUMIN 3.4 g/dl (3.4-5.0); BLOOD UREA NITROGEN 13.4 mg/dL (7-18)
[2020-09-29 17:42] LABS: CREATININE 0.8 mg/dL (0.55-1.3)
[2020-09-29 17:44] LABS: BILIRUBIN,TOTAL 0.2 mg/dL (0.2-1); TOT PROT 6.9 g/dl (6.4-8.2)
[2020-09-29 18:29] LABS: EPI CELLS 5 /uL (0-25.1); HCG,QUALITATIVE URINE Positive; HYALINE CASTS 1 /uL (0-3.1); PH,URINE 5.5 (5.0-8.0); URINE APPEARANCE CLEAR; URINE BACTERIA 356 /uL (0-1359); URINE BILIRUBIN NEGATIVE (NEGATIVE); URINE COLOR YELLOW; URINE GLUCOSE (UA) NEGATIVE (NEGATIVE); URINE KETONE TRACE (NEGATIVE); URINE LEUK ESTERASE NEGATIVE (NEGATIVE); URINE NITRITE NEGATIVE (NEGATIVE); URINE PROTEIN NEGATIVE (NEGATIVE); URINE RBC 285 /uL (0-23.9); URINE UROBILINOGEN 0.2 mg/dL (0.2-1.0); URINE WBC 5 /uL (0-25.8)
[2020-09-29 20:00] VITALS: BP 133/68; PULSE 72; TEMP 98.6
== END 2020-09-29 20:00 | disposition home or self-care (01) ==
LOC: JER 15:05
DX: O26.851 Spotting complicating pregnancy, first trimester (principal)
CPT/HCPCS: 36415; 76830-TC; 76856-TC; 80053; 81003; 84702; 84703; 85025; 87086; 87186; 99285-25

== ENCOUNTER 2021-09-21 10:43 | Emergency (ER) | payer OTHER ==
[2021-09-21 10:56] VITALS: BP 159/102; PULSE 77; TEMP 98.2; BMI 33.9
[2021-09-21] MEDS ORDERED: ACETAMINOPHEN 500 MG TABLET (FP) PO ONE (11:42)
[2021-09-21] MEDS ORDERED: IBUPROFEN 200 MG TABLET PO ONE (11:42)
[2021-09-21] MEDS ORDERED: ACETAMINOPHEN 500 MG TABLET (FP) ONE (11:51)
== END 2021-09-21 13:26 | disposition home or self-care (01) ==
LOC: JER 10:43
DX: S29.011A Strain of muscle and tendon of front wall of thorax, initial encounter (principal); V43.52XA Car driver injured in collision with other type car in traffic accident, initial encounter
CPT/HCPCS: 71046-TC-FY; 93005; 93010; 99284-25